=== PATIENT | male | born 1965 | race Caucasian/White ===

== ENCOUNTER 2023-03-12 12:56 | Inpatient (IN) | payer SELFPAY ==
[~2023-03-12] VITALS: Ht 175.3 cm; Wt 89.8 kg
--- NOTE | 2023-03-12 13:00 | ED General ---
General Stated Complaint: INTOXICATED History of Present Illness Date Seen by Provider: March 12, 2023 Time Seen by Provider: 12:59 Initial Comments 57-year-old male with PMH of Alcoholism, is brought in by EMS with c/o alcohol intoxication. Pt did not pay his hotel bill and so the hotel called the police to have him removed. Hotel staff reported to police that pt had been drinking since he got there. Police called EMS since pt was not cooperative due to intoxication. EMS reports that pt would not tlak to them. In the ER, pt i nitially woud not answer questions, then slowly started answering questions. Pt is from [place]. 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 Pt is not providing a history freely and it is with great difficulty that he is providing the minimal info needed. Pt is AOx3, able to maintain a stable airway. Allergies and Home Medications Allergies Coded Allergies: No Allergy Information Available (Unverified , 03/12/23) Pt is not cooperating with H & P Patient Home Medication List Home Medication List Reviewed: Yes Review of Systems Review of Systems Constitutional: other EENTM: no symptoms reported Respiratory: no symptoms reported Cardiovascular: no symptoms reported Genitourinary: no symptoms reported Skin: no symptoms reported Psychiatric/Neurological: No Symptoms Reported Immunological/Allergic: no symptoms reported Physical Exam Vital Signs Vital Signs - First Documented 03/12/23 13:31 Temp 36.4 B/P (MAP) 110/66 (81) Capillary Refill : Height, Weight, BMI Height: '" Weight: lbs. oz. kg; BMI Method: General Appearance: No Apparent Distress, WD/WN, Other HEENT: PERRL/EOMI, Normal ENT Inspection, Other (Dry mucous membranes) Neck: Full Range of Motion, Normal Inspection Respiratory: Chest Non Tender, Lungs Clear, Normal Breath Sounds Cardiovascular: Regular Rate, Rhythm, No Edema Gastrointestinal: Non Tender, Soft Extremity: Normal Range of Motion Neurologic/Psychiatric: Alert, Oriented x3, No Motor/Sensory Deficits, Other (Patient is intoxicated but able to converse and follow commands) Skin: Other (Tenting of skin due to dehydration) Focused Exam Lactate Level 03/12/23 13:25: Lactic Acid Level 8.27*H 03/12/23 15:51: Lactic Acid Level 8.16*H Lactic Acid Level Laboratory Tests Test 03/12/23 13:25 03/12/23 15:51 Lactic Acid Level 8.27 MMOL/L (0.50-2.00) *H 8.16 MMOL/L (0.50-2.00) *H Progress/Results/Core Measures Suspected Sepsis SIRS Temperature: Pulse: Respiratory Rate: Laboratory Tests 03/12/23 13:25: White Blood Count 6.1 Blood Pressure / Mean: 03/12/23 13:25: Lactic Acid Level 8.27*H 03/12/23 15:51: Lactic Acid Level 8.16*H Laboratory Tests 03/12/23 13:25: Creatinine 0.82, Platelet Count 206, Total Bilirubin 0.3 Results/Orders Lab Results Laboratory Tests Test 03/12/23 13:25 03/12/23 15:51 Range/Units White Blood Count 6.1 4.3-11.0 10^3/uL Red Blood Count 4.50 4.30-5.52 10^6/uL Hemoglobin 15.0 13.3-17.7 g/dL Hematocrit 43 40-54 % Mean Corpuscular Volume 96 80-99 fL Mean Corpuscular Hemoglobin 33 25-34 pg Mean Corpuscular Hemoglobin Concent 35 32-36 g/dL Red Cell Distribution Width 15.3 H 10.0-14.5 % Platelet Count 206 130-400 10^3/uL Mean Platelet Volume 9.9 9.0-12.2 fL Immature Granulocyte % (Auto) 0 % Neutrophils (%) (Auto) 53 42-75 % Lymphocytes (%) (Auto) 33 12-44 % Monocytes (%) (Auto) 8 0-12 % Eosinophils (%) (Auto) 3 0-10 % Basophils (%) (Auto) 2 0-10 % Neutrophils # (Auto) 3.2 1.8-7.8 10^3/uL Lymphocytes # (Auto) 2.0 1.0-4.0 10^3/uL Monocytes # (Auto) 0.5 0.0-1.0 10^3/uL Eosinophils # (Auto) 0.2 0.0-0.3 10^3/uL Basophils # (Auto) 0.1 0.0-0.1 10^3/uL Immature Granulocyte # (Auto) 0.0 0.0-0.1 10^3/uL Sodium Level 142 135-145 MMOL/L Potassium Level 3.6 3.6-5.0 MMOL/L Chloride Level 98 98-107 MMOL/L Carbon Dioxide Level 24 21-32 MMOL/L Anion Gap 20 H 5-14 MMOL/L Blood Urea Nitrogen 10 7-18 MG/DL Creatinine 0.82 0.60-1.30 MG/DL Estimat Glomerular Filtration Rate 104 BUN/Creatinine Ratio 12 Glucose Level 117 H 70-105 MG/DL Lactic Acid Level 8.27 *H 8.16 *H 0.50-2.00 MMOL/L Calcium Level 8.9 8.5-10.1 MG/DL Corrected Calcium 8.7 8.5-10.1 MG/DL Magnesium Level 1.8 1.6-2.4 MG/DL Total Bilirubin 0.3 0.1-1.0 MG/DL Aspartate Amino Transf (AST/SGOT) 92 H 5-34 U/L Alanine Aminotransferase (ALT/SGPT) 96 H 0-55 U/L Alkaline Phosphatase 63 40-136 U/L Troponin I < 0.30 <0.30 NG/ML Total Protein 7.2 6.4-8.2 GM/DL Albumin 4.3 3.2-4.5 GM/DL Lipase 38 8-78 U/L Serum Alcohol 507 *H 445 *H <10 MG/DL My Orders Orders - TRAY PICHARDO MD Alcohol (03/12/23 13:07) Cbc With Automated Diff (03/12/23 13:07) Comprehensive Metabolic Panel (03/12/23 13:07) Drug Screen Stat (Urine) (03/12/23 13:07) Lactic Acid Analyzer (03/12/23 13:07) Lipase (03/12/23 13:07) Magnesium (03/12/23 13:07) Ua Culture If Indicated (03/12/23 13:07) Troponin I Fs (03/12/23 13:07) Chest 1 View Ap/Pa Only (03/12/23 13:08) Thiamine Injection (Vitamin B-1 Injectio (03/12/23 13:20) Folic Acid Tablet (Folic Acid Tablet) (03/12/23 13:30) Ed Iv/Invasive Line Start (03/12/23 13:49) Ns Iv 1000 Ml (Sodium Chloride 0.9%) (03/12/23 14:00) Alcohol (03/12/23 15:50) Lactic Acid Analyzer (03/12/23 15:50) Ed Admission (Communication) (03/12/23 16:35) Medications Given in ED Current Medications Medications Dose Ordered Sig/Sergei Route Start Time Stop Time Status Last Admin Dose Admin Folic Acid 1 mg ONCE ONCE PO 03/12/23 13:30 03/12/23 13:31 DC 03/12/23 13:45 1 MG Vital Signs/I&O 03/12/23 13:31 Temp 36.4 B/P (MAP) 110/66 (81) Capillary Refill : Progress Note : Progress Note 1. ALCOHOL INTOXICATION/ DEHYDRATION/ LACTIC ACIDOSIS: - CXR: pt would not allow XR - Labs: CBC: normal WBC and stable Hb - Electrolytes unremarkable - Anion gap is 20 - AST:ALT: 92:96, is elevated likely due to intoxication - s. ETOH is 503, after IVF and 2 hours: 444 - Lactic acid: 8.27, after 2 bags of IVF: 8.16 - UA / UDS: pt is urinating in himself and will not give urine sample, Prior to transfer, pt states he will try and accepted the urinal - NS IVF, 1st bag by EMS. 2nd in ER, 3rd at 250/hr initiated in ER - Folic acid oral / Thiamine iv STAT in ER -Since patient's lactic acid is elevated and not improving much even after 2 bags of fluids, elevated EtOH levels, and along with an anion gap of 20, will admit to [facility] for rehydration with IV fluids and observation overnight, on CIWA protocol. Discussed with hospitalist and accepted. - Pt will be needing social work consult -Patient has been alert oriented x3 and able to converse and follow all commands, with stable vital signs. Diagnostic Imaging Diagonstic Imaging: Xray Plain Films/CT/US/NM/MRI: chest Departure Communication (Admissions) Time/Spoke to Admitting Phy: 16:26 Discussed with hospitalist, Dr. Yeh. Excepted for admission to observation unit. Impression Primary Impression: Lactic acidosis Additional Impressions: Dehydration Alcohol intoxication in active alcoholic with complication Disposition: 30 STILL A PATIENT Condition: Stable Admissions Decision to Admit Reason: Admit from ER (General) Decision to Admit/Date: March 12, 2023 Time/Decision to Admit Time: 16:00 Transfer Method of Transfer: EMS TRAY PICHARDO MD March 12, 2023 13:00
[2023-03-12] MEDS ORDERED: THIAMINE INJECTION 100 MG in NS (IVPB) 50 ML IV STA (13:20)
[2023-03-12 13:30] LABS: BASOPHILS # (AUTO) 0.1 10^3/uL (0.0-0.1); BASOPHILS % (AUTO) 2 % (0-10); EOSINOPHILS # (AUTO) 0.2 10^3/uL (0.0-0.3); EOSINOPHILS % (AUTO) 3 % (0-10); HEMATOCRIT 43 % (40-54); LYMPHOCYTES % (AUTO) 33 % (12-44); MEAN CORPUSCULAR HEMOGLOBIN 33 pg (25-34); MEAN CORPUSCULAR HGB CONC 35 g/dL (32-36); MEAN CORPUSCULAR VOLUME 96 fL (80-99); MEAN PLATELET VOLUME 9.9 fL (9.0-12.2); MONOCYTES # (AUTO) 0.5 10^3/uL (0.0-1.0); MONOCYTES % (AUTO) 8 % (0-12); NEUTROPHILS # (AUTO) 3.2 10^3/uL (1.8-7.8); NEUTROPHILS % (AUTO) 53 % (42-75); PLATELET COUNT 206 10^3/uL (130-400); WHITE BLOOD COUNT 6.1 10^3/uL (4.3-11.0)
[2023-03-12] MEDS ORDERED: FOLIC ACID 1 MG TAB PO ONE (13:30)
[2023-03-12 13:51] LABS: ALKALINE PHOSPHATASE 63 U/L (40-136); BILIRUBIN,TOTAL 0.3 MG/DL (0.1-1.0); BUN/CREATININE RATIO 12; CALCIUM 8.9 MG/DL (8.5-10.1); CARBON DIOXIDE 24 MMOL/L (21-32); CHLORIDE 98 MMOL/L (98-107); CREATININE SERUM 0.82 MG/DL (0.60-1.30); GFR ESTIMATED 104; GLUCOSE 117 MG/DL (70-105); MAGNESIUM 1.8 MG/DL (1.6-2.4); POTASSIUM 3.6 MMOL/L (3.6-5.0); SODIUM 142 MMOL/L (135-145)
[2023-03-12 13:52] LABS: ALANINE AMINOTRANSFERASE 96 U/L (0-55); ALBUMIN 4.3 GM/DL (3.2-4.5); TOTAL PROTEIN 7.2 GM/DL (6.4-8.2)
[2023-03-12] MEDS ORDERED: NS IV 1000 ML 1,000 ML IV SCH (14:00)
[2023-03-12 14:06] LABS: LIPASE 38 U/L (8-78)
[2023-03-12] MEDS ORDERED: NS IV 1000 ML 1,000 ML IV STA (17:00)
[2023-03-12] MEDS ORDERED: NS IV 1000 ML 1,000 ML ONE (18:24)
[2023-03-12 18:53] VITALS: BP 106/66
[2023-03-12] MEDS ORDERED: LACTATED RINGERS 1,000 ML IV SCH (20:15)
[2023-03-12] MEDS ORDERED: IBUPROFEN 600 MG (MOTRIN) TAB PO ONE (20:15)
[2023-03-12] MEDS ORDERED: ACETAMINOPHEN 325 MG TABLET PO PRN (20:45)
[2023-03-12] MEDS ORDERED: FAMOTIDINE 20MG/2ML IV (PEPCID) IV PRN (20:45)
--- NOTE | 2023-03-12 20:50 | Tele-ICU Progress Note ---
Progress Note 57M with EtOH dependence brought in by EMS with intoxication. They were apparently called to have him removed from a hotel for lack of payment. He was intoxicated and uncooperative, prompting police to call EMS. He refused to spak for EMS, but slowly starting answering questions in ED and now is somewhat hyperverbal with many tangential conversations. Has been drinking heavily for about 5 years, for the last 5-days drinking in excess in an attempt to kill himself. Routine work up with several abnormalities. Initial lactic of 8.27 only fell to 8.16 before rebounding to 8.53. 3rd L of NS is about senior care in now. Anion gap 20. A/P: - acidosis: anion gap metabolic acidosis. Possibly secondary to elevated lactic. Will need additional work up including ABG to evaluate for complex disorders, serum tox screen, salicylates, acetaminophen, osmo. If evidence of complex acid base disorder or osmolar gap, will need to check for toxic alcohol ingestion. Also sending ketones for evidence of alcholoic ketoacidosis. Will continue volume resuscitation. Trending lactics. - intoxication: patient is alert, oriented despite intoxication. Will send repeat serum level now, will be needed for osmolar gap calculation. Initial level 507 03/12@1325, repeat 445 03/12@1550. Bannatalie khan, YVROSE ordered. - transaminitis: unclear whether this is chronic or acute. Will trend in AM. - SI: will need to be re-evaluated when he is less intoxicated. Will defer to primary for psych eval and disposition. Patient assessed via real-time audiovisual communication device. CCT 31 min Focused Exam Lactate Level 03/12/23 15:51: Lactic Acid Level 8.16*H 03/12/23 18:39: Lactic Acid Level 8.53*H 03/12/23 20:19: Height, Weight, BMI Height: '" Weight: lbs. oz. kg; 21.15 BMI Method: Lactic Acid Level Laboratory Tests Test 03/12/23 18:39 03/12/23 20:19 Lactic Acid Level 8.53 MMOL/L (0.50-2.00) *HAMMAD FREY MD March 12, 2023 20:50
[2023-03-12 20:54] LABS: ALBUMIN 3.9 GM/DL (3.2-4.5); CHLORIDE 102 MMOL/L (98-107); POTASSIUM 3.7 MMOL/L (3.6-5.0); SODIUM 142 MMOL/L (135-145)
[2023-03-12 20:57] LABS: GLUCOSE 83 MG/DL (70-105); TOTAL PROTEIN 6.3 GM/DL (6.4-8.2)
[2023-03-12 20:58] LABS: CARBON DIOXIDE 21 MMOL/L (21-32)
[2023-03-12 20:59] LABS: BILIRUBIN,TOTAL 0.4 MG/DL (0.1-1.0)
[2023-03-12] MEDS ORDERED: NS IV 500 ML 500 ML IV PRN (21:00)
[2023-03-12 21:01] LABS: ALKALINE PHOSPHATASE 44 U/L (40-136); CREATININE SERUM 0.69 MG/DL (0.60-1.30); GFR ESTIMATED 109
[2023-03-12 21:02] LABS: BUN/CREATININE RATIO 12
[2023-03-12 21:03] LABS: SALICYLATE < 5.0 MG/DL (5.0-20.0)
[2023-03-12 21:04] LABS: ALANINE AMINOTRANSFERASE 87 U/L (0-55); CREATINE KINASE 547 U/L (30-200)
[2023-03-12] MEDS: FOLIC ACID 1 MG TAB PO SCH (21:05)
[2023-03-12] MEDS: ONDANSETRON 4 MG/2 ML (SDV) Z0FRAN IV PRN (21:06)
[2023-03-12] MEDS: LORazepam INJ 2 MG/ML (ATIVAN) VIAL IV PRN (21:06)
[2023-03-12] MEDS: THIAMINE 100 MG/ML 2 ML (VITAMIN B-1) VIAL IV SCH (21:06)
[2023-03-12 21:11] LABS: ACETAMINOPHEN < 10 UG/ML (10-30)
[2023-03-12 22:07] LABS: ABG BASE EXCESS 0.5 MMOL/L (-2.5-2.5); ABG OXYGEN SATURATION 95 % (94-100); ABG PCO2 41 MMHG (35-45); ABG PO2 71 MMHG (79-93)
[2023-03-12 22:17] LABS: ALLENS TEST YES-POS; INSPIRED O2 ROOM AIR; PATIENT TEMP 37; VENTILATOR NO
[2023-03-12] MEDS: LACTATED RINGERS 1,000 ML IV SCH (22:30)
[2023-03-13] MEDS: MELATONIN 3 MG TABLET PO PRN ×2 (01:08→20:58)
[2023-03-13] MEDS: LORazepam INJ 2 MG/ML (ATIVAN) VIAL IV PRN ×19 (01:08→23:59)
[2023-03-13] MEDS: LACTATED RINGERS 1,000 ML IV SCH ×5 (02:13→19:49)
[2023-03-13 02:38] LABS: BASOPHILS # (AUTO) 0.1 10^3/uL (0.0-0.1); BASOPHILS % (AUTO) 1 % (0-10); EOSINOPHILS # (AUTO) 0.2 10^3/uL (0.0-0.3); EOSINOPHILS % (AUTO) 5 % (0-10); HEMATOCRIT 30 % (40-54); HEMOGLOBIN 10.7 g/dL (13.3-17.7); LYMPHOCYTES # (AUTO) 1.3 10^3/uL (1.0-4.0); LYMPHOCYTES % (AUTO) 26 % (12-44); MEAN CORPUSCULAR HEMOGLOBIN 34 pg (25-34); MEAN CORPUSCULAR HGB CONC 35 g/dL (32-36); MEAN CORPUSCULAR VOLUME 95 fL (80-99); MEAN PLATELET VOLUME 9.7 fL (9.0-12.2); MONOCYTES # (AUTO) 0.4 10^3/uL (0.0-1.0); MONOCYTES % (AUTO) 9 % (0-12); NEUTROPHILS # (AUTO) 2.9 10^3/uL (1.8-7.8); NEUTROPHILS % (AUTO) 59 % (42-75); PLATELET COUNT 154 10^3/uL (130-400); WHITE BLOOD COUNT 4.9 10^3/uL (4.3-11.0)
[2023-03-13 02:46] LABS: ALBUMIN 3.5 GM/DL (3.2-4.5); POTASSIUM 3.5 MMOL/L (3.6-5.0)
[2023-03-13 02:47] LABS: CALCIUM 7.9 MG/DL (8.5-10.1)
[2023-03-13 02:49] LABS: TOTAL PROTEIN 5.6 GM/DL (6.4-8.2)
[2023-03-13 02:50] LABS: BILIRUBIN,TOTAL 0.5 MG/DL (0.1-1.0)
[2023-03-13 02:52] LABS: PHOSPHORUS 1.6 MG/DL (2.3-4.7)
[2023-03-13 02:53] LABS: CREATININE SERUM 0.74 MG/DL (0.60-1.30)
[2023-03-13 02:56] LABS: MAGNESIUM 1.2 MG/DL (1.6-2.4)
[2023-03-13] MEDS: MAGNESIUM 1 GM/100 ML IVPB 100 ML IV SCH ×7 (04:44→10:32)
[2023-03-13] MEDS: POTASSIUM CL 10MEQ/50ML IVPB 50 ML IV SCH (05:01)
[2023-03-13] MEDS: KCL 20 MEQ TAB (K-DUR) PO SCH (05:01)
[2023-03-13] MEDS: ONDANSETRON 4 MG/2 ML (SDV) Z0FRAN IV PRN ×3 (06:09→18:04)
[2023-03-13] MEDS: FOLIC ACID 1 MG TAB PO SCH (08:57)
[2023-03-13] MEDS: THIAMINE 100 MG/ML 2 ML (VITAMIN B-1) VIAL IV SCH (08:57)
[2023-03-13] MEDS ORDERED: POTASSIUM PHOSPHATE INJ 30 MM in NS (IVPB) 250 ML IV ONE (09:00)
--- NOTE | 2023-03-13 10:41 | Tele-ICU Progress Note ---
Subjective Date Seen by a Provider: March 13, 2023 Time Seen by a Provider: 10:40 Subjective/Events-last exam (Tele-ICU Physician , Progress Note ) Service provided via interactive audio and video telecommunications E-CARE system to a patient admitted to ICU bed in [facility]. Patient is seen today due to persistent need of ICU care Available chart/ vitals / labs / Images reviewed Video assessment done using teleICU camera, rest of exam as per RN Discussed with RN Events overnight : Afebrile hemodynamically stable Respiratory - 2L I/O =++ Drips: Pressors- no Hospital course: (03/12) 57yM Admitted with ETOH intoxication. Pt also displaying suicide ideations. Also lactic acidosis and dehydration per ED MD notes A/P: - acidosis: anion gap metabolic acidosis. -Possibly secondary to elevated lactic. - serum tox screenpending , ( salicylates, acetaminophen WNL ) ( If evidence osmolar gap, mught need to check for toxic alcohol ingestion -Trending lactics - improving alcholoic ketoacidosi - Will continue volume resuscitation. - ETOH intoxication- pending withdrawal -patient is alert, oriented despite intoxication -CIWA, vitamins - transaminitis - ? ETOH - follow Hypoxia - mild Anemia - no active bleeding , suspected delutional , follow Mild eleb CPK - cont hydration Lines : periph , (Central Line Necessity Reviewed) Roth: void OG: Nutrition: po Analgesia: Anxiety/ delirium VTE Prophylaxis: scd Stress Ulcer Prophylaxis: na Plans in collaboration with bedside consultants and IM MDs. Discussed with RN to reach out if any questions or concerns Case and care daily discussed on multidisciplinary rounds ( RN, PharmD, Line Erector , Respiratory Therapy, abatement worker ) A total of 20 minutes of critical care time was devoted to this patient today, required to treat and/or prevent further deterioration of critical care condition ( as above ) . I am remotely monitoring this patient from another state. I am unable to do the bedside exam, and history/physical and pertinent information is taken from other notes in the computer and bedside staff. Sepsis Event Evaluation Height, Weight, BMI Height: '" Weight: lbs. oz. kg; 21.15 BMI Method: Focused Exam Lactate Level 03/13/23 02:25: Lactic Acid Level 3.89*H 03/13/23 06:24: Lactic Acid Level 3.05*H 03/13/23 10:23: Lactic Acid Level Laboratory Tests Test 03/13/23 10:23 Exam Exam Patient acknowledged, consented, and participated in this virtual visit which was conducted using real time audio/video Vital Signs Date Time Temp Pulse Resp B/P (MAP) Pulse Ox O2 Delivery O2 Flow Rate FiO2 03/13/23 10:00 105 9 114/78 (90) 94 Nasal Cannula 2.00 03/13/23 09:00 108 26 126/79 (95) 90 Nasal Cannula 2.00 03/13/23 08:12 37.3 101 25 134/100 (111) 91 Nasal Cannula 2.00 03/13/23 08:00 91 Nasal Cannula 2.00 03/13/23 07:19 98 03/13/23 07:00 99 13 127/75 (92) 87 Nasal Cannula 2.00 03/13/23 06:00 99 21 122/70 (86) 89 Nasal Cannula 2.00 03/13/23 05:00 100 30 119/73 (84) 90 Nasal Cannula 2.00 03/13/23 04:00 112 139/65 (79) 89 Nasal Cannula 2.00 03/13/23 03:37 92 Room Air 03/13/23 03:36 37.0 03/13/23 03:00 108 26 113/69 (82) 92 Nasal Cannula 2.00 03/13/23 02:00 116 14 106/68 (85) 93 Nasal Cannula 2.00 03/13/23 01:15 109 25 110/61 (74) 90 Nasal Cannula 2.00 03/13/23 01:00 128 03/13/23 00:29 Nasal Cannula 2.00 03/13/23 00:00 100 21 103/71 (80) 90 Room Air 03/12/23 23:51 36.8 03/12/23 23:47 88 Room Air 03/12/23 23:00 108 17 110/68 (78) Room Air 03/12/23 22:00 107 14 137/86 (102) Room Air 03/12/23 21:00 92 24 137/68 (89) Room Air 03/12/23 20:07 Room Air 03/12/23 20:00 85 12 91/64 (73) Room Air 03/12/23 19:44 98 21 112/91 (100) Room Air 03/12/23 19:37 37.0 03/12/23 19:15 93 19 124/117 (120) Room Air 03/12/23 19:00 98 21 157/128 (140) Room Air 03/12/23 19:00 84 03/12/23 18:58 Room Air 03/12/23 18:53 36.4 90 96 21 03/12/23 18:31 90 03/12/23 16:41 36.4 90 18 106/66 96 Room Air 03/12/23 13:31 36.4 110/66 (81) I & O 03/13/23 07:00 Intake Total 4300 ml Output Total 0 ml Balance 4300 ml Height & Weight Height: '" Weight: lbs. oz. kg; 21.15 BMI Method: General Appearance: No Apparent Distress, WD/WN, Other HEENT: PERRL/EOMI, Normal ENT Inspection, Other (Dry mucous membranes) Neck: Full Range of Motion, Normal Inspection Respiratory: Chest Non Tender, Lungs Clear, Normal Breath Sounds Cardiovascular: Regular Rate, Rhythm, No Edema Extremity: Normal Range of Motion Neurologic/Psychiatric: Alert, Oriented x3, No Motor/Sensory Deficits, Other (Patient is intoxicated but able to converse and follow commands) Skin: Other (Tenting of skin due to dehydration) Results Lab Laboratory Tests 03/12/23 13:25 03/12/23 20:19 03/13/23 02:25 Assessment/Plan Assessment/Plan 1 ANGEL CAROLINA MD March 13, 2023 10:41
[2023-03-13 15:33] LABS: BILIRUBIN,URINE NEGATIVE (NEGATIVE); CLARITY,URINE CLEAR; COLOR,URINE YELLOW; GLUCOSE, URINE (UA) NEGATIVE (NEGATIVE); KETONES,URINE NEGATIVE (NEGATIVE); NITRITE,URINE NEGATIVE (NEGATIVE); PH,URINE 7.5 (5-9); PROTEIN,URINE NEGATIVE (NEGATIVE)
[2023-03-13 15:34] LABS: BACTERIA,URINE NEGATIVE /HPF; LEUKOCYTE ESTERASE ,URINE NEGATIVE (NEGATIVE)
[2023-03-13 15:35] LABS: AMPHETAMINE SCREEN, URINE NEGATIVE (NEGATIVE); BARBITURATE SCREEN URINE NEGATIVE (NEGATIVE); BENZODIAZEPINES SCREEN URINE POSITIVE (NEGATIVE); CANNABINOID SCREEN, URINE NEGATIVE (NEGATIVE); COCAINE SCREEN URINE NEGATIVE (NEGATIVE); METHADONE STAT NEGATIVE (NEGATIVE); OPIATE SCREEN URINE NEGATIVE (NEGATIVE); OXYCODONE STAT NEGATIVE (NEGATIVE); PROPOXYPHENE STAT NEGATIVE (NEGATIVE); TRICYCLIC ANTIDEPRESSANTS SCRE NEGATIVE (NEGATIVE)
--- NOTE | 2023-03-13 17:57 | History & Physical-Hospitalist ---
History of Present Illness HPI/Chief Complaint Ayden Richards is a 57 year old male who presented with acute alcohol intoxication. He is from [place] and was in [place] visiting his ex- girlfriend. He was staying at a hotel but did not pay his bill. The hotel re portedly called police to have him removed. He reports being sober for 15 years, but has not been sober for several years now. He says he goes on "benders" for 3-5 days and binge drinks. He does not drink every day. His last day without drinking was a week ago. He drinks vodka. He has a history of alcohol withdrawal. He wants to quit drinking. He has gone to in [place]. He is currently having tremors. He reports headache. He has nausea. He has been having visual hallucinations. Source: patient Exam Limitations: no limitations Date Seen 03/13/23 Time Seen by a Provider: 10:00 Attending Physician No,Local Physician PCP Admitting Physician: Lizzette Grissom MD Attending Physician: Cristel Lowe MD Referring Physician Date of Admission March 12, 2023 at 20:55 Home Medications & Allergies Home Medications Reviewed patient Home Medication Reconciliation performed by pharmacy medication reconciliations bacteriology technician and/or nursing. Patients Allergies have been reviewed. Allergies Allergies Coded Allergies Penicillins (Verified Allergy, Unknown, 03/12/23) strawberry (Verified Allergy, Unknown, 03/12/23) Past [id number]-[id number]-[id number] Hx Patient Social History Tobacco Use?: Yes Tobacco type used: Cigarettes Smoking Status: Current Someday Smoker Use of E-Cig and/or Vaping dev: No Substance use?: Yes Alcohol Use?: Yes Alcohol type: Hard Liquor Additional alcohol type: VODKA LITER/DAY Alcohol Frequency: Daily Pt feels they are or have been: No Current Status Advance Directives: No Communicates: Verbally Primary Language: Sammarinese Preferred Spoken Language: Sammarinese Is interpretation needed?: No Sensory deficits: Vision impairment Implanted or Applied Medical D: Orthopedic hardware Family Medical History No Pertinent Family Hx Review of Systems Constitutional: no symptoms reported Respiratory: no symptoms reported Cardiovascular: no symptoms reported Gastrointestinal: nausea Physical Exam Physical Exam Vital Signs Vital Signs - First Documented 03/12/23 03/12/23 03/12/23 03/13/23 13:31 16:41 18:53 00:29 Temp 36.4 Pulse 90 Resp 18 B/P (MAP) 110/66 (81) Pulse Ox 96 O2 Delivery Room Air O2 Flow Rate 2.00 FiO2 21 Capillary Refill : Height, Weight, BMI Height: '" Weight: lbs. oz. kg; 21.15 BMI Method: General Appearance: No Apparent Distress, WD/WN HEENT: PERRL/EOMI, Pharynx Normal, Other (tongue fasciculations) Neck: Normal Inspection, Supple Respiratory: Lungs Clear, No Respiratory Distress Cardiovascular: Regular Rate, Rhythm, No Murmur Gastrointestinal: Normal Bowel Sounds, Soft Extremity: Normal Inspection, No Pedal Edema Neurologic/Psychiatric: Alert, Oriented x3, Other (tremulous) Skin: Normal Color, Warm/Dry Results Results/Procedures Labs Laboratory Tests 03/12/23 13:25 03/12/23 20:19 03/13/23 02:25 Patient resulted labs reviewed. Assessment/Plan Admission Diagnosis Acute alcohol intoxication Admission Status: Inpatient Order (span 2 midnights) Reason for Inpatient Admission: Alcohol withdrawal Assessment and Plan Acute alcohol intoxication Alcohol abuse Alcohol dependence Alcohol withdrawal Elevated LFTs EtOH >500 on arrival [facility] protocol High risk for severe withdrawal Monitor in ICU Lactic acidosis IV fluids Hypokalemia Hypomagnesemia Hypophosphatemia Monitor and replace electrolytes as needed DVT prophylaxis: Lovenox Critical Care Critically Ill Patient Diagnosis/Problems Diagnosis/Problems (1) Alcohol intoxication in active alcoholic with complication Status: Acute (2) Alcohol abuse with withdrawal and perceptual disturbance Status: Acute (3) Alcoholic hepatitis Status: Acute Qualifiers: Ascites presence: without ascites Qualified Codes: K70.10 - Alcoholic hepatitis without ascites (4) Hypokalemia Status: Acute (5) Hypomagnesemia Status: Acute (6) Hypophosphatemia Status: Acute (7) Lactic acidosis Status: Acute CRISTEL LOWE MD March 13, 2023 17:57
[2023-03-13] MEDS: ENOXAPARIN 40 MG/0.4 ML (LOVENOX) SYR SC SCH (19:58)
[2023-03-14] MEDS: LORazepam INJ 2 MG/ML (ATIVAN) VIAL IV PRN ×4 (01:12→10:15)
[2023-03-14 04:08] LABS: BASOPHILS % (AUTO) 1 % (0-10); HEMATOCRIT 32 % (40-54)
[2023-03-14 04:10] LABS: EOSINOPHILS # (AUTO) 0.2 10^3/uL (0.0-0.3); EOSINOPHILS % (AUTO) 5 % (0-10); HEMOGLOBIN 11.5 g/dL (13.3-17.7); LYMPHOCYTES # (AUTO) 1.3 10^3/uL (1.0-4.0); LYMPHOCYTES % (AUTO) 29 % (12-44); MEAN CORPUSCULAR HEMOGLOBIN 34 pg (25-34); MEAN CORPUSCULAR HGB CONC 36 g/dL (32-36); MEAN CORPUSCULAR VOLUME 95 fL (80-99); MEAN PLATELET VOLUME 10.4 fL (9.0-12.2); MONOCYTES # (AUTO) 0.5 10^3/uL (0.0-1.0); MONOCYTES % (AUTO) 10 % (0-12); NEUTROPHILS # (AUTO) 2.4 10^3/uL (1.8-7.8); NEUTROPHILS % (AUTO) 54 % (42-75); PLATELET COUNT 131 10^3/uL (130-400); WHITE BLOOD COUNT 4.4 10^3/uL (4.3-11.0)
[2023-03-14] MEDS: LACTATED RINGERS 1,000 ML IV SCH ×3 (04:13→17:36)
[2023-03-14 04:34] LABS: ALBUMIN 3.6 GM/DL (3.2-4.5); BILIRUBIN,TOTAL 0.7 MG/DL (0.1-1.0); CALCIUM 8.7 MG/DL (8.5-10.1); CREATININE SERUM 0.84 MG/DL (0.60-1.30); MAGNESIUM 1.7 MG/DL (1.6-2.4); PHOSPHORUS 2.6 MG/DL (2.3-4.7); POTASSIUM 3.8 MMOL/L (3.6-5.0); TOTAL PROTEIN 5.9 GM/DL (6.4-8.2)
[2023-03-14] MEDS: KCL 20 MEQ TAB (K-DUR) PO SCH (05:00)
[2023-03-14] MEDS: MAGNESIUM 1 GM/100 ML IVPB 100 ML IV SCH ×4 (05:00→09:15)
[2023-03-14] MEDS: POTASSIUM CL 10MEQ/50ML IVPB 50 ML IV SCH (05:00)
[2023-03-14] MEDS ORDERED: KCL 20 MEQ TAB (K-DUR) PO ONE (06:00)
[2023-03-14] MEDS: MULTIVIT W/MINERALS TAB (THERAGRAN M) PO SCH (06:26)
[2023-03-14] MEDS: FOLIC ACID 1 MG TAB PO SCH (08:23)
[2023-03-14] MEDS: THIAMINE 100 MG/ML 2 ML (VITAMIN B-1) VIAL IV SCH (08:24)
--- NOTE | 2023-03-14 12:19 | Tele-ICU Progress Note ---
Subjective Date Seen by a Provider: March 14, 2023 Time Seen by a Provider: 10:25 Subjective/Events-last exam Tele-ICU Physician , Progress Note ) Service provided via interactive audio and video telecommunications E-CARE s yste to a patient admitted to ICU bed in [facility]. Patient is seen today due to persistent need of ICU care Available chart/ vitals / labs / Images reviewed Video assessment done using teleICU camera, rest of exam as per RN today pt is anxious and requiring ativan iv prn. Admitted with alcohol withdrawal syndrome. no fever or shortness of breath. has elevated LFTS. Impression. 1. alcohol withdrawal syndrome slowly improving. 2. Alcohol keto acidosis imroving. 3. Lactic acidosis also improving. 4.Elevated LFT'S due to alcohol abuse Plan. 1. continue CIWA protocol 2. if necessary will start on precedex and phenobarbitol. 3. Thiamine and folic acid 4. DVT prophylaxis Coordination of care with primary care physician and bedside consultants.. I am remotely monitoring this patient from Tele icu station in [place]. I am unable to do the bedside exam, and history/physical and pertinent information is taken from other notes in the computer and bedside staff. Certain portions of this document may have been dictated utilizing voice recognition technology such as [employer]. Inherent to this technology, typographical and grammatical errors may exist. As much as I am diligent to identify and correct to these mistakes, some errors may remain in the document. Critical care time devoted to this patient today is approximately is 25 minutes Sepsis Event Evaluation Height, Weight, BMI Height: '" Weight: lbs. oz. kg; 21.15 BMI Method: Focused Exam Lactate Level 03/13/23 02:25: Lactic Acid Level 3.89*H 03/13/23 06:24: Lactic Acid Level 3.05*H 03/13/23 10:23: Lactic Acid Level 1.78 Exam Exam Patient acknowledged, consented, and participated in this virtual visit which was conducted using real time audio/video Vital Signs Date Time Temp Pulse Resp B/P (MAP) Pulse Ox O2 Delivery O2 Flow Rate FiO2 03/14/23 11:47 36.3 03/14/23 11:00 85 28 133/91 (105) 90 Nasal Cannula 2.00 03/14/23 10:00 104 26 100 Nasal Cannula 2.00 03/14/23 09:00 101 12 134/89 (104) 90 Nasal Cannula 2.00 03/14/23 08:00 94 Room Air 03/14/23 08:00 82 37 121/104 (110) 95 Nasal Cannula 2.00 03/14/23 07:49 36.9 03/14/23 07:19 80 03/14/23 07:00 96 24 125/99 (108) 95 Nasal Cannula 2.00 03/14/23 06:00 86 21 140/76 (105) 92 Nasal Cannula 2.00 03/14/23 05:00 75 18 119/83 (96) 93 Nasal Cannula 2.00 03/14/23 04:06 36.8 03/14/23 04:00 95 Nasal Cannula 2.00 03/14/23 04:00 72 19 117/79 (92) 94 Nasal Cannula 2.00 03/14/23 03:00 85 35 130/92 (103) 95 Nasal Cannula 2.00 03/14/23 02:00 93 20 120/87 (99) 95 Nasal Cannula 2.00 03/14/23 01:00 73 03/14/23 01:00 73 17 120/101 (103) 96 Nasal Cannula 2.00 03/14/23 00:00 73 37 126/87 (100) 95 Nasal Cannula 2.00 03/13/23 23:59 94 Nasal Cannula 2.00 03/13/23 23:00 84 27 129/84 (99) 94 Nasal Cannula 2.00 03/13/23 22:00 83 24 129/86 (100) 93 Nasal Cannula 2.00 03/13/23 21:00 94 35 122/84 (100) 91 Nasal Cannula 2.00 03/13/23 20:09 36.9 03/13/23 20:00 84 23 144/104 (119) 88 Nasal Cannula 2.00 03/13/23 20:00 95 Nasal Cannula 2.00 03/13/23 19:00 81 18 132/91 (107) 94 Nasal Cannula 2.00 03/13/23 19:00 81 03/13/23 18:00 88 13 122/84 (97) 95 Nasal Cannula 2.00 03/13/23 17:00 91 23 132/87 (102) 93 Nasal Cannula 2.00 03/13/23 16:16 36.1 03/13/23 16:05 36.1 03/13/23 16:00 97 27 142/103 (116) 90 Nasal Cannula 2.00 03/13/23 16:00 91 Nasal Cannula 2.00 03/13/23 15:00 89 28 93 Nasal Cannula 2.00 03/13/23 14:00 105 32 128/92 (104) 95 Nasal Cannula 2.00 03/13/23 13:00 105 24 121/98 (106) 95 Nasal Cannula 2.00 I & O 03/14/23 07:00 Intake Total 4460 ml Output Total 4975 ml Balance -515 ml Height & Weight Height: '" Weight: lbs. oz. kg; 21.15 BMI Method: General Appearance: No Apparent Distress, WD/WN HEENT: PERRL/EOMI, Pharynx Normal, Other (tongue fasciculations) Neck: Normal Inspection, Supple Respiratory: Lungs Clear, No Respiratory Distress Cardiovascular: Regular Rate, Rhythm, No Murmur Extremity: Normal Inspection, No Pedal Edema Neurologic/Psychiatric: Alert, Oriented x3, Other (tremulous) Skin: Normal Color, Warm/Dry Results Lab Laboratory Tests 03/12/23 13:25 03/12/23 20:19 03/13/23 02:25 03/14/23 03:50 Assessment/Plan Assessment/Plan as above Critical Care: Critically Ill Patient Time spent with patient (mins): 25 DUNG MORALES MD March 14, 2023 12:19
--- NOTE | 2023-03-14 15:26 | Progress Note - Hospitalist ---
Subjective HPI/CC On Admission Date Seen by Provider: March 14, 2023 Time Seen by Provider: 10:30 Ayden Richards is a 57 year old male who presented with acute alcohol intoxication. He is from [place] and was in [place] visiting his ex- girlfriend. He was staying at a hotel but did not pay his bill. The hotel reportedly called police to have him removed. He reports being sober for 15 years, but has not been sober for several years now. He says he goes on "benders" for 3-5 days and binge drinks. He does not drink every day. His last day without drinking was a week ago. He drinks vodka. He has a history of alcohol withdrawal. He wants to quit drinking. He has gone to in [place]. He is currently having tremors. He reports headache. He has nausea. He has been having visual hallucinations. Subjective/Events-last exam He is feeling better. He has no complaints. He wants to go home. He denies ashley cidal ideation and intent. He says he passively said he would "rather be ", but had no intention to harm himself. He denies any history of self harm or attempts. Focused Exam Lactate Level 03/13/23 02:25: Lactic Acid Level 3.89*H 03/13/23 06:24: Lactic Acid Level 3.05*H 03/13/23 10:23: Lactic Acid Level 1.78 Objective Exam Vital Signs Vital Signs Date Time Temp Pulse Resp B/P (MAP) Pulse Ox O2 Delivery O2 Flow Rate FiO2 03/14/23 15:07 37.1 03/14/23 14:00 97 28 127/89 (102) Nasal Cannula 2.00 03/14/23 12:00 94 03/12/23 18:53 21 Capillary Refill : General Appearance: No Apparent Distress, WD/WN Respiratory: Lungs Clear, No Respiratory Distress Cardiovascular: Regular Rate, Rhythm, No Murmur Gastrointestinal: Normal Bowel Sounds, Soft Extremity: Normal Inspection, No Pedal Edema Neurologic/Psychiatric: Alert, Normal Mood/Affect Skin: Normal Color, Warm/Dry Results/Procedures Lab Laboratory Tests 03/14/23 03:50 Patient resulted labs reviewed. Assessment/Plan Assessment and Plan Assess & Plan/Chief Complaint Acute alcohol intoxication Alcohol abuse Alcohol dependence Alcohol withdrawal Elevated LFTs [facility] protocol Passive suicidal ideations Resolved Social work consulted Awaiting screening DVT prophylaxis: Lovenox Lactic acidosis, resolved Hypokalemia, resolved Hypomagnesemia, resolved Hypophosphatemia, resolved Diagnosis/Problems Diagnosis/Problems (1) Alcohol intoxication in active alcoholic with complication Status: Acute (2) Alcohol abuse with withdrawal and perceptual disturbance Status: Acute (3) Alcoholic hepatitis Status: Acute Qualifiers: Ascites presence: without ascites Qualified Codes: K70.10 - Alcoholic hepatitis without ascites (4) Hypokalemia Status: Acute (5) Hypomagnesemia Status: Acute (6) Hypophosphatemia Status: Acute (7) Lactic acidosis Status: Acute (8) Passive suicidal ideations Status: Acute GHAZAL LOWE MD March 14, 2023 15:26
[2023-03-14] MEDS: ENOXAPARIN 40 MG/0.4 ML (LOVENOX) SYR SC SCH (21:28)
[2023-03-15] MEDS: LACTATED RINGERS 1,000 ML IV SCH (03:40)
[2023-03-15] MEDS: POTASSIUM CL 10MEQ/50ML IVPB 50 ML IV SCH (04:14)
[2023-03-15] MEDS: MAGNESIUM 1 GM/100 ML IVPB 100 ML IV SCH ×5 (04:15→08:31)
[2023-03-15] MEDS: KCL 20 MEQ TAB (K-DUR) PO SCH (04:15)
[2023-03-15 04:32] LABS: HEMOGLOBIN 12.2 g/dL (13.3-17.7)
[2023-03-15 04:34] LABS: BASOPHILS % (AUTO) 0 % (0-10); EOSINOPHILS # (AUTO) 0.4 10^3/uL (0.0-0.3); EOSINOPHILS % (AUTO) 6 % (0-10); HEMATOCRIT 35 % (40-54); LYMPHOCYTES # (AUTO) 1.6 10^3/uL (1.0-4.0); LYMPHOCYTES % (AUTO) 27 % (12-44); MEAN CORPUSCULAR HEMOGLOBIN 34 pg (25-34); MEAN CORPUSCULAR HGB CONC 35 g/dL (32-36); MEAN CORPUSCULAR VOLUME 96 fL (80-99); MEAN PLATELET VOLUME 11.1 fL (9.0-12.2); MONOCYTES # (AUTO) 0.5 10^3/uL (0.0-1.0); MONOCYTES % (AUTO) 9 % (0-12); NEUTROPHILS # (AUTO) 3.4 10^3/uL (1.8-7.8); NEUTROPHILS % (AUTO) 57 % (42-75); PLATELET COUNT 118 10^3/uL (130-400)
[2023-03-15 04:42] LABS: ALBUMIN 3.6 GM/DL (3.2-4.5)
[2023-03-15 04:43] LABS: CALCIUM 9.2 MG/DL (8.5-10.1)
[2023-03-15 04:44] LABS: TOTAL PROTEIN 6.2 GM/DL (6.4-8.2)
[2023-03-15 04:46] LABS: BILIRUBIN,TOTAL 0.7 MG/DL (0.1-1.0)
[2023-03-15 04:48] LABS: CREATININE SERUM 0.83 MG/DL (0.60-1.30); PHOSPHORUS 3.9 MG/DL (2.3-4.7)
[2023-03-15 04:51] LABS: MAGNESIUM 1.6 MG/DL (1.6-2.4)
[2023-03-15] MEDS: MULTIVIT W/MINERALS TAB (THERAGRAN M) PO SCH (05:34)
--- NOTE | 2023-03-15 07:31 | Tele-ICU Progress Note ---
Subjective Date Seen by a Provider: March 15, 2023 Time Seen by a Provider: 07:31 Subjective/Events-last exam Tele-ICU Physician , Progress Note ) Service provided via interactive audio and video telecommunications [facility] s yste to a patient admitted to ICU bed in [facility]. Patient is seen today due to persistent need of ICU care Available chart/ vitals / labs / Images reviewed Video assessment done using teleICU camera, rest of exam as per RN today pt is anxious and requiring ativan iv prn. Admitted with alcohol withdrawal syndrome. no fever or shortness of breath. has elevated LFTS. 03/15/23 pt feeling some better. no agitation over the night. Impression. 1. alcohol withdrawal syndrome improved 2. Alcohol keto acidosis imroving. 3. Lactic acidosis also improving. 4.Elevated LFT'S due to alcohol abuse Plan. 1. discharge planing per attending 2. Thiamine and folic acid 3. DVT prophylaxis Coordination of care with primary care physician and bedside consultants.. I am remotely monitoring this patient from Tele icu station in [place]. I am unable to do the bedside exam, and history/physical and pertinent information is taken from other notes in the computer and bedside staff. Certain portions of this document may have been dictated utilizing voice recognition technology such as [employer]. Inherent to this technology, typographical and grammatical errors may exist. As much as I am diligent to identify and correct to these mistakes, some errors may remain in the document. Critical care time devoted to this patient today is approximately is 15 minutes Sepsis Event Evaluation Height, Weight, BMI Height: '" Weight: lbs. oz. kg; 21.15 BMI Method: Focused Exam Lactate Level 03/13/23 02:25: Lactic Acid Level 3.89*H 03/13/23 06:24: Lactic Acid Level 3.05*H 03/13/23 10:23: Lactic Acid Level 1.78 Exam Exam Patient acknowledged, consented, and participated in this virtual visit which was conducted using real time audio/video Vital Signs Date Time Temp Pulse Resp B/P (MAP) Pulse Ox O2 Delivery O2 Flow Rate FiO2 03/15/23 05:00 72 10 127/59 (73) 92 Room Air 03/15/23 04:00 78 14 143/70 (92) 94 Room Air 03/15/23 04:00 Room Air 03/15/23 03:43 37.0 03/15/23 03:00 73 22 144/99 (113) 94 Room Air 03/15/23 02:00 94 14 132/84 (95) 95 Room Air 03/15/23 01:00 89 19 136/96 (105) 95 Room Air 03/15/23 01:00 89 03/15/23 00:00 92 21 125/90 (103) 94 Room Air 03/14/23 23:59 Room Air 03/14/23 23:55 37.0 03/14/23 23:00 90 10 122/104 (113) 97 Room Air 03/14/23 22:00 74 18 142/98 (113) 94 Room Air 03/14/23 21:00 85 29 140/111 (121) 98 Room Air 03/14/23 20:00 Room Air 03/14/23 20:00 70 15 131/93 (106) Room Air 03/14/23 19:00 74 03/14/23 19:00 37.1 80 131/90 (104) Room Air 03/14/23 18:00 90 18 138/92 (107) 99 Room Air 03/14/23 17:00 78 18 151/98 (115) Room Air 03/14/23 16:00 95 Room Air 03/14/23 16:00 88 122/88 (99) Room Air 03/14/23 16:00 91 13 123/88 (100) Nasal Cannula 2.00 03/14/23 15:07 37.1 03/14/23 15:00 73 14 134/89 (104) Nasal Cannula 2.00 03/14/23 14:00 97 28 127/89 (102) Nasal Cannula 2.00 03/14/23 13:14 89 03/14/23 13:00 107 14 142/101 (115) Nasal Cannula 2.00 03/14/23 12:00 94 Room Air 03/14/23 12:00 79 21 131/87 (102) Nasal Cannula 2.00 03/14/23 11:47 36.3 03/14/23 11:00 85 28 133/91 (105) 90 Nasal Cannula 2.00 03/14/23 10:00 104 26 100 Nasal Cannula 2.00 03/14/23 09:00 101 12 134/89 (104) 90 Nasal Cannula 2.00 03/14/23 08:00 94 Room Air 03/14/23 08:00 82 37 121/104 (110) 95 Nasal Cannula 2.00 03/14/23 07:49 36.9 I & O 03/15/23 07:00 Intake Total 3400 ml Output Total 5450 ml Balance -2050 ml Height & Weight Height: '" Weight: lbs. oz. kg; 21.15 BMI Method: General Appearance: No Apparent Distress, WD/WN HEENT: PERRL/EOMI, Pharynx Normal, Other (tongue fasciculations) Neck: Normal Inspection, Supple Respiratory: Lungs Clear, No Respiratory Distress Cardiovascular: Regular Rate, Rhythm, No Murmur Extremity: Normal Inspection, No Pedal Edema Neurologic/Psychiatric: Alert, Normal Mood/Affect Skin: Normal Color, Warm/Dry Results Lab Laboratory Tests 03/14/23 03:50 03/15/23 04:02 Assessment/Plan Assessment/Plan as above Critical Care: Critically Ill Patient Time spent with patient (mins): 15 DUNG MORALES MD March 15, 2023 07:31
[2023-03-15] MEDS: FOLIC ACID 1 MG TAB PO SCH (08:32)
[2023-03-15] MEDS: THIAMINE 100 MG/ML 2 ML (VITAMIN B-1) VIAL IV SCH (08:32)
[2023-03-15 13:48] VITALS: BP 138/106
--- NOTE | 2023-03-15 18:24 | Discharge Summary ---
Discharge Summary Hospital Course Problems/Dx: (1) Alcohol intoxication in active alcoholic with complication Status: Acute (2) Alcohol abuse with withdrawal and perceptual disturbance Status: Acute (3) Alcoholic hepatitis Status: Acute Qualifiers: Qualified Codes: K70.10 - Alcoholic hepatitis without ascites (4) Hypokalemia Status: Acute (5) Hypomagnesemia Status: Acute (6) Hypophosphatemia Status: Acute (7) Lactic acidosis Status: Acute (8) Passive suicidal ideations Status: Acute Hospital Course Date of Admission: March 12, 2023 at 20:55 Admission Diagnosis : Alcohol dependence with acute intoxication and withdrawal Family Physician/Provider: Keisha Lopez Physician Date of Discharge: 03/15/23 Discharge Diagnosis: Alcohol dependence with acute intoxication and withdrawal Hospital Course: Ayden Richards is a 57 year old male who was admitted with acute alcohol intoxication. He has a history of alcohol dependence, abuse, and withdrawal. He was placed on the CIWA protocol and given Ativan. His symptoms resolved and his Ativan requirement decreased. His course was complicated by passive suicidal ideation. He passively stated that he would "rather be " while he was acutely intoxicated. He denied any suicidal ideation or intent. He has no history of suicide attempt. He was given a safety plan by [facility]. He was discharged home in stable condition. He should establish with a primary care physician. Labs and Pending Lab Test: Laboratory Tests 03/15/23 04:02: White Blood Count 6.0, Red Blood Count 3.63L, Hemoglobin 12.2L, Hematocrit 35L, Mean Corpuscular Volume 96, Mean Corpuscular Hemoglobin 34, Mean Corpuscular Hemoglobin Concent 35, Red Cell Distribution Width 14.5, Platelet Count 118L, Mean Platelet Volume 11.1, Immature Granulocyte % (Auto) 0, Neutrophils (%) (Auto) 57, Lymphocytes (%) (Auto) 27, Monocytes (%) (Auto) 9, Eosinophils (%) (Auto) 6, Basophils (%) (Auto) 0, Neutrophils # (Auto) 3.4, Lymphocytes # (Auto) 1.6, Monocytes # (Auto) 0.5, Eosinophils # (Auto) 0.4H, Basophils # (Auto) 0.0, Immature Granulocyte # (Auto) 0.0, Percent Immature Platelet Fraction 7.8H, Sodium Level 138, Potassium Level 4.0, Chloride Level 105, Carbon Dioxide Level 22, Anion Gap 11, Blood Urea Nitrogen 7, Creatinine 0.83, Estimat Glomerular Filtration Rate 103, BUN/Creatinine Ratio 8, Glucose Level 95, Calcium Level 9.2, Corrected Calcium 9.5, Phosphorus Level 3.9, Magnesium Level 1.6, Total Bilirubin 0.7, Aspartate Amino Transf (AST/SGOT) 42H, Alanine Aminotransferase (ALT/SGPT) 57H, Alkaline Phosphatase 58, Total Protein 6.2L, Albumin 3.6 Microbiology 03/12/23 MRSA Screen - Final, Complete MRSA not isolated Home Meds Active No Active Prescriptions or Reported Medications Assessment/Pt Instructions See instructions Discharge Planning: >30 minutes discharge planning Discharge Instructions Discharge Diet: No Restrictions Activity as Tolerated: Yes Discharge Physical Examination Vital Signs Vital Signs Date Time Temp Pulse Resp B/P (MAP) Pulse Ox O2 Delivery O2 Flow Rate FiO2 03/15/23 13:48 36.8 96 20 138/106 100 Room Air 03/14/23 16:00 2.00 03/12/23 18:53 21 General Appearance: No Apparent Distress, WD/WN Respiratory: Lungs Clear, No Respiratory Distress Cardiovascular: Regular Rate, Rhythm, No Murmur Gastrointestinal: Normal Bowel Sounds, Soft Extremity: Normal Inspection, No Pedal Edema Skin: Normal Color, Warm/Dry Neurologic/Psychiatric: Alert, Normal Mood/Affect Allergies: Coded Allergies: Penicillins (Verified Allergy, Unknown, 03/12/23) strawberry (Verified Allergy, Unknown, 03/12/23) Discharge Summary Date of Admission March 12, 2023 at 20:55 Date of Discharge March 15, 2023 at 13:50 Discharge Date: March 15, 2023 Discharge Time: 13:50 Admission Diagnosis Acute alcohol intoxication Discharge Diagnosis Acute alcohol intoxication, resolved Alcohol abuse Alcohol dependence Alcohol withdrawal, resolved Elevated LFTs, resolved Passive suicidal ideations, reslved Lactic acidosis, resolved Hypokalemia, resolved Hypomagnesemia, resolved Hypophosphatemia, resolved (1) Alcohol intoxication in active alcoholic with complication Status: Acute (2) Alcohol abuse with withdrawal and perceptual disturbance Status: Acute (3) Alcoholic hepatitis Status: Acute Qualifiers: Qualified Codes: K70.10 - Alcoholic hepatitis without ascites (4) Hypokalemia Status: Acute (5) Hypomagnesemia Status: Acute (6) Hypophosphatemia Status: Acute (7) Lactic acidosis Status: Acute (8) Passive suicidal ideations Status: Acute GHAZAL LOWE MD March 15, 2023 18:24
== END 2023-03-15 13:50 | disposition home or self-care (01) | DRG 897 ==
LOC: ER FS 12:59 → ICU 17:55 → OBSVTOIN 20:55
PROVIDERS: ADMIT Family Medicine; ATTEND Internal Medicine
DX: F10.229 Alcohol dependence with intoxication, unspecified (principal); E87.29 Other acidosis; R45.851 Suicidal ideations; F10.232 Alcohol dependence with withdrawal with perceptual disturbance; K70.10 Alcoholic hepatitis without ascites; E86.0 Dehydration; Y90.8 Blood alcohol level of 240 mg/100 ml or more; E87.6 Hypokalemia; E83.42 Hypomagnesemia; E83.39 Other disorders of phosphorus metabolism; R09.02 Hypoxemia; F17.210 Nicotine dependence, cigarettes, uncomplicated; H54.7 Unspecified visual loss
CPT/HCPCS: 36415; 80053; 80306; 80307; 80320; 80329; 81000; 82010; 82550; 82805; 83605; 83690; 83735; 83930; 84100; 84484; 85025; 87081